=== PATIENT | female | born 1960 | race Caucasian/White ===

== ENCOUNTER 2017-08-13 08:51 | Day surgery (SDC) | payer OTHER ==
[2017-08-13] VITALS (11 sets, daily range): BP systolic 98–114; BP diastolic 57–71; PULSE 50–66; RESP 16–33; Ht 167.6 cm; Wt 57.0 kg
[~2017-08-13] VITALS: Ht 167.6 cm; Wt 57.0 kg
[2017-08-13] MEDS ORDERED: LEVO50TA71 PO (09:21)
--- NOTE | 2017-08-13 10:01 | RADRPT ---
PROCEDURE: XR Chest. CLINICAL INDICATION: Preoperative. TECHNIQUE: Single frontal view. COMPARISON: None. FINDINGS: The lungs are clear. The heart size is normal. There is no pleural effusion. There is no pneumothorax. IMPRESSION: 1. Normal chest radiograph. RPTAT: QQ .Alcides Ryan MD, Date Time Electronically viewed and signed by .Alcides Ryan MD, on 08/13/2017 10:00 .R/
[2017-08-13] MEDS ORDERED: PROPOFOL 20 ML ONE (11:07)
[2017-08-13] MEDS ORDERED: FENTAnyl 50 MCG/ML VIAL ONE (11:07)
[2017-08-13] MEDS ORDERED: MIDAZOLAM 1 MG/ML 2 ML INJ ONE (11:07)
[2017-08-13] MEDS ORDERED: FERRIC SUBSULFATE 8 GM VIAL TOP SCH (12:00)
[2017-08-13] MEDS ORDERED: LIDOCAINE 2%/EPI 30 ML INJ ONE (12:19)
[2017-08-13] MEDS ORDERED: SUCCINYLCHOLINE CHLORIDE 100 MG/5 ML SYG IV ONE ×2 (12:29→12:30)
[2017-08-13] MEDS ORDERED: CEFAZOLIN 1 GM INJ ONE (12:29)
[2017-08-13] MEDS ORDERED: DEXAMETHASONE 4 MG/ML 1 ML INJ ONE (12:29)
[2017-08-13] MEDS ORDERED: ONDANSETRON 4 MG INJ ONE (12:29)
[2017-08-13] MEDS ORDERED: METOCLOPRAMIDE 10 MG INJ ONE (12:29)
[2017-08-13] MEDS ORDERED: KETOROLAC 30 MG INJ ONE (12:29)
--- NOTE | 2017-08-13 13:25 | SIPON ---
Date/Time of Note Date/Time of Note DATE: 08/13/17 TIME: 13:24 Operative Report Preoperative Diagnosis HSIL Postoperative Diagnosis Same Operation/Procedure Performed LEEP Surgeon Suzy Zimmer MD classroom assistant Dining Room Host Anesthesia: general Estimated blood loss: minimal Transfusion Required none Specimen Cervix Grafts/Implants none Complications none SUZY ZIMMER MD Aug 13, 2017 13:25
[2017-08-13] MEDS ORDERED: EPHEDrine SULFATE 50 MG/5 ML SYG IV PRN (13:30)
[2017-08-13] MEDS ORDERED: FENTAnyl 50 MCG/ML VIAL IV PRN ×3 (13:30)
[2017-08-13] MEDS ORDERED: MEPERIDINE 25 MG INJ IV PRN (13:30)
[2017-08-13] MEDS ORDERED: DIPHENHYDRAMINE 50 MG INJ IV PRN (13:30)
[2017-08-13] MEDS ORDERED: OXYCODONE/ACETAMINOPHEN (5/325) TAB PO PRN (13:30)
[2017-08-13] MEDS ORDERED: morphine (1 MG/ML) 10ML SYRINGE IV PRN ×3 (13:30)
[2017-08-13] MEDS ORDERED: ONDANSETRON 4 MG INJ IV PRN (13:30)
--- NOTE | 2017-08-13 14:12 | PREOPHP ---
DATE OF ADMISSION: 08/13/2017 HISTORY OF PRESENT ILLNESS: A 57-year-old female, 3, para 2, AB 1 who is admitted with hist ory of high-grade squamous intraepithelial lesion. PAST MEDICAL HISTORY: Unremarkable. PAST SURGICAL HISTORY: section. ALLERGIES: NO KNOWN ALLERGIES. FAMILY HISTORY: Hypertension. PHYSICAL EXAMINATION: VITAL SIGNS: Patient is afebrile, vital signs stable. EXAMINATION OF HEAD, NECK AND CHEST: Within normal limits. ABDOMEN: Soft, nontender, nondistended. PELVIC EXAM: Normal. EXAMINATION OF LOWER EXTREMITIES: Within normal limits. NEUROLOGIC: Within normal limits. IMPRESSION: High-grade squamous intraepithelial lesion. PLAN: Loop electrosurgical excision procedure. Risks, benefits and alternatives of the procedure w ere explained to the patient. The patient said she understood and gave informed consent for the pro cedure. Dictated By: SUZY AREVALO/AMANDA Conf#: [id number] DID#: [id number]
--- NOTE | 2017-08-13 14:18 | OPR ---
DATE OF OPERATION: 08/13/2017 PREOPERATIVE DIAGNOSIS: High grade squamous epithelial lesion. POSTOPERATIVE DIAGNOSIS: High grade squamous epithelial lesion. OPERATION PERFORMED: Loop electrosurgical excision procedure. ANESTHESIA: General. ANESTHESIOLOGIST: DESCRIPTION OF PROCEDURE: The patient was taken to the operating room and placed on the operating table in supine position. After adequate general anesthesia was given, the patient was placed in dorsal lithotomy position. The area was prepared and draped in the usual sterile fashion. Speculum was placed inside the vagina. Using 2% solution of lidocaine with epinephrine, the cervix was injected. Using a semicircular loop, a portion of the cervix was excised and sent to pathology. Using ball tip Bovie, small bleeders were cauterized. Surgicel soaked in Monsel solution was applied to the site. All the instruments were removed. Adequate hemostasis was assured. Patient tolerated the procedure well. The patient was awakened from anesthesia and transferred to recovery in stable condition. ESTIMATED BLOOD LOSS: Minimal. COUNTS: All counts were correct. Dictated By: SUZY AREVALO/AMANDA Conf#: [id number] DID#: [id number]
--- NOTE | 2017-08-16 15:58 | RADRPT ---
Vent Rate: 59 bpm RR Interval: 0 msec GA Interval: 184 msec QRS Duration: 90 msec QT Interval: 410 msec QTC Interval: 405 msec P-R-T [place]: 67 - 66 - 58 degrees Sinus bradycardia Otherwise normal ECG Electronically Signed By: Brendon Andres [id number]
== END 2017-08-13 14:35 | disposition home or self-care (01) ==
LOC: SDS 08:51
PROVIDERS: ATTEND Obstetrics & Gynecology
DX: R87.613 High grade squamous intraepithelial lesion on cytologic smear of cervix (HGSIL) (principal); E03.9 Hypothyroidism, unspecified
CPT/HCPCS: 57522; 71010; 88305; 93005; J0690; J1100; J1885; J2250; J2405; J2765; J3010; Z7512; Z7610